=== PATIENT | female | born 1970 | race Caucasian/White ===

== ENCOUNTER 2025-10-31 17:58 | Emergency (ER) | payer BC ==
[2025-10-31] MEDS: Phenylephrine 1% 10 MG/ML SDV ONE (18:10)
[2025-10-31] MEDS ORDERED: Sodium Chloride 0.9% 10 ML Syringe FLUSH PRN (18:33)
== END 2025-10-31 18:45 | disposition home or self-care (01) ==
LOC: LB.ED 17:58
DX: R04.0 Epistaxis (principal); I10 Essential (primary) hypertension; Z79.899 Other long term (current) drug therapy
CPT/HCPCS: 30901; 99283; 99283-25; A9270-GY; J2371